=== PATIENT | female | born 1960 | race Caucasian/White ===

== ENCOUNTER 2019-03-20 09:18 | Emergency (ER) | payer OTHER ==
[~2019-03-20] VITALS: Ht 170.2 cm; Wt 66.3 kg
[2019-03-20] MEDS ORDERED: CALTRATE 602 PO (09:44)
[2019-03-20] MEDS ORDERED: VITAMIN E400 UNIT PO (09:44)
[2019-03-20 10:40] LABS: HEMATOCRIT 41.7 % (37.0-47.0); IMMATURE GRANULOCYTES 0.5 % (0.0-5.0); MEAN CELL VOLUME 89.5 fL CALC (80.0-100.0); MEAN CORPUSCULAR HGB CONC 33.6 g/L CALC (32.0-36.0); NEUT# 4.55 thou/uL (2.00-7.15); RED BLOOD COUNT 4.66 mill/uL (4.20-5.60); RED CELL DISTRI WIDTH 12.5 % (11.5-15.5)
[2019-03-20 10:56] LABS: ALBUMIN 4.5 g/dL (3.2-5.0); ALKALINE PHOSPHATASE 77 u/l (38-126); ANION GAP 15 (6-22 (CALC)); BILIRUBIN, TOTAL 1.4 mg/dL (0.0-1.4); BUN 11 mg/dL (7-17); BUN/CREATININE RATIO 15 (12-20 (CALC)); CARBON DIOXIDE 26 mmol/l (22-30); CHLORIDE 103 mmol/l (95-108); CREATININE 0.8 mg/dL (0.5-1.0); GFR > 60 ML/MIN (>=60 (CALC)); GFR FOR AFR.AMER. > 60 ML/MIN (>=60 (CALC)); LIPASE 188 u/l (23-300); POTASSIUM 3.7 mmol/l (3.5-5.1); SGOT/AST 22 u/l (14-36); SODIUM 140 mmol/l (137-146); TOTAL PROTEIN 7.3 g/dL (6.3-8.2)
[2019-03-20 10:59] LABS: URINE BILIRUBIN - DIPSTICK NEGATIVE (NEGATIVE); URINE BLOOD DIPSTICK SMALL (NEGATIVE); URINE COLOR YELLOW; URINE GLUCOSE - DIPSTICK NEGATIVE (NEGATIVE); URINE KETONE TRACE mg/dL (NEGATIVE); URINE LEUK ESTERASE NEGATIVE (NEGATIVE); URINE NITRITE - DIPSTICK NEGATIVE (Negative); URINE PROTEIN - DIPSTICK NEGATIVE (NEG-TRACE); URINE SPECIFIC GRAVITY 1.025; URINE UROBILINOGEN - DIPSTICK 0.2 E.U./dL (0.2)
[2019-03-20 11:02] LABS: URINE SQUAMOUS EPITHELIAL CELL FEW EPI/hpf (0-FEW)
[2019-03-20 13:37] LABS: C. DIFFICILE TOXIN A&B NEGATIVE (NEGATIVE)
[2019-03-20] MEDS ORDERED: METRONIDAZOL500 MG PO (13:55)
[2019-03-20 14:27] VITALS: BP 130/73
== END 2019-03-20 15:10 | disposition home or self-care (01) | DRG 373 ==
LOC: ED 09:18
PROVIDERS: Family Medicine
DX: A04.72 Enterocolitis due to Clostridium difficile, not specified as recurrent (principal)

== ENCOUNTER 2020-06-23 16:35 | Emergency (ER) | payer OTHER ==
[~2020-06-23] VITALS: Ht 170.2 cm; Wt 66.0 kg
[~2020-06-23 16:35] MED LIST: CALTRATE 602 PO; METRONIDAZOL500 MG PO; VITAMIN E400 UNIT PO
[2020-06-23 17:35] LABS: URINE BILIRUBIN - DIPSTICK NEGATIVE (NEGATIVE); URINE BLOOD DIPSTICK LARGE (NEGATIVE); URINE COLOR YELLOW; URINE GLUCOSE - DIPSTICK NEGATIVE (NEGATIVE); URINE KETONE NEGATIVE (NEGATIVE); URINE LEUK ESTERASE MODERATE (NEGATIVE); URINE NITRITE - DIPSTICK POSITIVE (Negative); URINE PROTEIN - DIPSTICK 100 mg/dL (NEG-TRACE); URINE UROBILINOGEN - DIPSTICK 0.2 E.U./dL (0.2)
[2020-06-23 17:44] LABS: URINE RBC 50-100 RBC/hpf (0-5); URINE SQUAMOUS EPITHELIAL CELL FEW EPI/hpf (0-FEW)
[2020-06-23] MEDS ORDERED: PYRIDIUM200 MG PO (17:59)
[2020-06-23] MEDS ORDERED: KEFLEX500 M1 PO (17:59)
[2020-06-23 18:08] VITALS: BP 128/38
== END 2020-06-23 18:08 | disposition home or self-care (01) | DRG 690 ==
LOC: ED 16:35
DX: N39.0 Urinary tract infection, site not specified (principal); B96.1 Klebsiella pneumoniae [K. pneumoniae] as the cause of diseases classified elsewhere

== ENCOUNTER 2021-04-12 10:09 | Emergency (ER) | payer OTHER ==
[~2021-04-12] VITALS: Ht 170.2 cm; Wt 85.0 kg
[~2021-04-12 10:09] MED LIST changes: +KEFLEX500 M1 PO; +PYRIDIUM200 MG PO
[2021-04-12 11:22] LABS: HEMATOCRIT 39.8 % (37.0-47.0); HEMOGLOBIN 13.3 g/dl (12.0-16.0); IMMATURE GRANULOCYTES 0.2 % (0.0-5.0); MEAN CELL VOLUME 89.4 fL CALC (80.0-100.0); MEAN CORPUSCULAR HGB 29.9 pG CALC (26.0-32.0); MEAN CORPUSCULAR HGB CONC 33.4 g/dL CAL (32.0-36.0); NEUT# 6.39 thou/uL (2.00-7.15); RED BLOOD COUNT 4.45 mill/uL (4.20-5.60); RED CELL DISTRI WIDTH 12.5 % (11.5-15.5)
[2021-04-12 11:35] LABS: ALBUMIN 3.9 g/dL (3.2-5.0); ALKALINE PHOSPHATASE 59 u/l (38-126); AMYLASE 55 u/l (30-110); ANION GAP 12 (6-22 (CALC)); BILIRUBIN, TOTAL 1.1 mg/dL (0.0-1.4); BUN 7 mg/dL (7-17); BUN/CREATININE RATIO 10 (12-20 (CALC)); CARBON DIOXIDE 30 mmol/l (22-30); CHLORIDE 99 mmol/l (95-108); CREATININE 0.7 mg/dL (0.5-1.0); GFR > 60 ML/MIN (>=60 (CALC)); GFR FOR AFR.AMER. > 60 ML/MIN (>=60 (CALC)); LIPASE 71 u/l (23-300); POTASSIUM 3.5 mmol/l (3.5-5.1); SGOT/AST 20 u/l (14-36); SODIUM 138 mmol/l (137-146); TOTAL PROTEIN 6.5 g/dL (6.3-8.2)
[2021-04-12 14:02] LABS: URINE BILIRUBIN - DIPSTICK NEGATIVE (NEGATIVE); URINE BLOOD DIPSTICK TRACE-LYSED (NEGATIVE); URINE COLOR YELLOW; URINE GLUCOSE - DIPSTICK NEGATIVE (NEGATIVE); URINE KETONE NEGATIVE (NEGATIVE); URINE LEUK ESTERASE NEGATIVE (NEGATIVE); URINE PH 5.5 (4.5-8.0); URINE PROTEIN - DIPSTICK NEGATIVE (NEG-TRACE); URINE SPECIFIC GRAVITY <=1.005; URINE UROBILINOGEN - DIPSTICK 0.2 E.U./dL (0.2)
[2021-04-12 14:18] LABS: URINE NITRITE - DIPSTICK NEGATIVE (Negative)
[2021-04-12] MEDS ORDERED: LOMOTIL2.5 MG PO (14:30)
[2021-04-12] MEDS ORDERED: METRONIDAZOL500 MG PO (14:30)
[2021-04-12] MEDS ORDERED: VANCOMYCIN HCL125 M1 PO ×2 (14:30→15:38)
[2021-04-12 14:53] VITALS: BP 128/65
== END 2021-04-12 14:56 | disposition home or self-care (01) | DRG 373 ==
LOC: ED 10:09
PROVIDERS: Emergency Medicine
DX: A04.72 Enterocolitis due to Clostridium difficile, not specified as recurrent (principal); Z20.822 Contact with and (suspected) exposure to COVID-19
CPT/HCPCS: Q9967

== ENCOUNTER 2021-06-14 14:49 | Emergency (ER) | payer OTHER ==
[~2021-06-14] VITALS: Ht 170.2 cm; Wt 65.0 kg
[~2021-06-14 14:49] MED LIST changes: +LOMOTIL2.5 MG PO; +VANCOMYCIN HCL125 M1 PO
[2021-06-14 16:59] VITALS: BP 143/77
== END 2021-06-14 16:59 | disposition home or self-care (01) | DRG 605 ==
LOC: ED 14:49
PROC: 0HQKXZZ Repair Right Lower Leg Skin, External Approach (ICD-10-PCS; principal; 2021-06-14)
DX: S81.811A Laceration without foreign body, right lower leg, initial encounter (principal); W01.198A Fall on same level from slipping, tripping and stumbling with subsequent striking against other object, initial encounter; Y92.009 Unspecified place in unspecified non-institutional (private) residence as the place of occurrence of the external cause

== ENCOUNTER 2021-06-21 10:33 | Emergency (ER) | payer OTHER ==
[~2021-06-21] VITALS: Ht 170.2 cm; Wt 61.8 kg
[2021-06-21 11:48] VITALS: BP 103/62
== END 2021-06-21 11:48 | disposition home or self-care (01) | DRG 950 ==
LOC: ED 10:33
DX: S81.811D Laceration without foreign body, right lower leg, subsequent encounter (principal); X58.XXXD Exposure to other specified factors, subsequent encounter

== ENCOUNTER 2022-10-27 06:22 | Emergency (ER) | payer BC ==
[~2022-10-27] VITALS: Ht 170.2 cm; Wt 64.0 kg
[2022-10-27 06:37] VITALS: BP 107/48
[2022-10-27] MEDS ORDERED: PROBIOTI2 (06:59)
[2022-10-27 07:48] LABS: BASO% 0.3 % (0-3); EOS% 0.1 % (0-8); HEMATOCRIT 38.2 % (37.0-47.0); IMMATURE GRANULOCYTES 0.8 % (0.0-5.0); LYMPH% 7.8 % (15-41); MEAN CELL VOLUME 90.5 fL CALC (80.0-100.0); MEAN CORPUSCULAR HGB 30.8 pG CALC (26.0-32.0); MONO% 5.1 % (2-13); NEUT# 9.29 thou/uL (2.00-7.15); NEUT% 85.9 % (42-76); RED BLOOD COUNT 4.22 mill/uL (4.20-5.60); RED CELL DISTRI WIDTH 12.9 % (11.5-15.5)
[2022-10-27 08:02] LABS: ALKALINE PHOSPHATASE 64 u/l (38-126); ANION GAP 7 (6-22 (CALC)); BILIRUBIN, TOTAL 1.1 mg/dL (0.0-1.4); BUN 9 mg/dL (7-17); BUN/CREATININE RATIO 11 (12-20 (CALC)); CARBON DIOXIDE 28 mmol/l (22-30); CHLORIDE 104 mmol/l (95-108); CREATININE 0.8 mg/dL (0.5-1.0); GFR FOR AFR.AMER. > 60 ML/MIN (>=60 (CALC)); GFR OTHER RACES > 60 ML/MIN (>=60 (CALC)); LIPASE 115 u/l (23-300); POTASSIUM 3.6 mmol/l (3.5-5.1); SGOT/AST 26 u/l (14-36); SODIUM 136 mmol/l (137-146); TOTAL PROTEIN 6.7 g/dL (6.3-8.2)
[2022-10-27 08:51] LABS: URINE BILIRUBIN - DIPSTICK NEGATIVE (NEGATIVE); URINE BLOOD DIPSTICK TRACE-INTACT (NEGATIVE); URINE COLOR YELLOW; URINE GLUCOSE - DIPSTICK NEGATIVE (NEGATIVE); URINE KETONE NEGATIVE (NEGATIVE); URINE LEUK ESTERASE NEGATIVE (NEGATIVE); URINE PROTEIN - DIPSTICK NEGATIVE (NEG-TRACE); URINE SPECIFIC GRAVITY 1.025; URINE UROBILINOGEN - DIPSTICK 0.2 E.U./dL (0.2)
[2022-10-27 08:52] LABS: URINE NITRITE - DIPSTICK NEGATIVE (Negative)
[2022-10-27] MEDS ORDERED: TAM75CAP PO (09:03)
[2022-10-27] MEDS ORDERED: ZOFRAN4 MG/TAB PO (09:03)
[2022-10-27 09:11] VITALS: BP 107/48
== END 2022-10-27 09:20 | disposition home or self-care (01) | DRG 195 ==
LOC: ED 06:22
PROVIDERS: Family Medicine
DX: J10.1 Influenza due to other identified influenza virus with other respiratory manifestations (principal)

== ENCOUNTER 2023-03-13 06:56 | Emergency (ER) | payer BC ==
[~2023-03-13] VITALS: Ht 170.2 cm; Wt 62.1 kg
[2023-03-13] VITALS (8 sets, daily range): BP systolic 126–149; BP diastolic 68–108
[~2023-03-13 06:56] MED LIST changes: +PROBIOTI2; +TAM75CAP PO; +ZOFRAN4 MG/TAB PO
[2023-03-13 07:31] LABS: BASO% 0.5 % (0-3); EOS% 1.9 % (0-8); HEMOGLOBIN 14.8 g/dl (12.0-16.0); IMMATURE GRANULOCYTES 0.2 % (0.0-5.0); LYMPH% 49.5 % (15-41); MEAN CELL VOLUME 89.4 fL CALC (80.0-100.0); MEAN CORPUSCULAR HGB CONC 32.5 g/dL CAL (32.0-36.0); MONO% 5.4 % (2-13); NEUT# 2.51 thou/uL (2.00-7.15); NEUT% 42.5 % (42-76); RED BLOOD COUNT 5.1 mill/uL (4.20-5.60)
[2023-03-13 07:35] LABS: HEMATOCRIT 45.6 % (37.0-47.0)
[2023-03-13 07:42] LABS: ALBUMIN 4.5 g/dL (3.2-5.0); ALKALINE PHOSPHATASE 94 u/l (38-126); BILIRUBIN, TOTAL 1.2 mg/dL (0.02-1.3); BUN 12 mg/dL (8-23); BUN/CREATININE RATIO 14 (12-20 (CALC)); CHLORIDE 105 mmol/l (95-108); CREATININE 0.9 mg/dL (0.5-1.0); GFR FOR AFR.AMER. > 60 ML/MIN (>=60 (CALC)); GFR OTHER RACES > 60 ML/MIN (>=60 (CALC)); POTASSIUM 3.9 mmol/l (3.5-5.1); SGOT/AST 24 u/l (9-36); SODIUM 139 mmol/l (137-146); TOTAL PROTEIN 7.3 g/dL (6.3-8.2)
[2023-03-13 07:49] LABS: ANION GAP 16 (6-22 (CALC)); CARBON DIOXIDE 22 mmol/l (22-30)
[2023-03-13] MEDS ORDERED: ZOFRAN4 MG/TAB PO (08:50)
[2023-03-13] MEDS ORDERED: MECLIZINE 2525 MG PO (08:50)
== END 2023-03-13 09:38 | disposition home or self-care (01) | DRG 149 ==
LOC: ED 06:56
PROVIDERS: Family Medicine
DX: H81.12 Benign paroxysmal vertigo, left ear (principal)